=== PATIENT | female | born 1970 | race African-American/Black ===

== ENCOUNTER 2019-10-11 04:58 | Inpatient (IN) ==
[2019-10-11] MEDS ORDERED: ALUM/MAG/SIMETH/LIDO VISC 1:1 30 ML BOTTLE PO ONE (05:23)
[2019-10-11 05:30] LABS: Basophils % 0.3 % (0.0-0.8); Eosinophils # 0.1 10*3/uL (0.0-0.87); Eosinophils % 1.8 % (0.00-10.9); Hematocrit 36.1 VOL% (35.7-47.0); Immature Granulocytes % 0.3 %; Immature Granulocytes Absolute 0.02 #; Lymphocytes # 1.5 10*3/uL (1.4-4.0); Lymphocytes % 23.5 % (21.3-54.2); Mean Corpuscular HGB Conc 33.2 GM/DL (32-36); Mean Corpuscular Volume 96.8 FL (87-102); Mean Platelet Volume 10.1 FL (9.6-12.0); Monocytes % 4.4 % (1.7-12.7); Neutrophils % 69.7 % (38.7-73.9); Platelet Count 209 T/CUMM (130-400); Red Blood Count 3.73 MC/CUMM (3.8-5.5); Red Cell Distribution Width 13.2 % (9.3-17.3); White Blood Count 6.2 T/CUMM (4-12)
[2019-10-11 05:48] LABS: INR 0.9
[2019-10-11 05:54] LABS: Albumin 3.8 G/DL (3.4-5.0); Bilirubin,Total 0.9 MG/DL (0.2-1.0); Calcium 9.2 MG/DL (8.5-10.1); Osmolality,Calculated 272.7 MOS/KG (273-304)
[2019-10-11] MEDS ORDERED: ONDANSETRON 4 MG/2 ML VIAL ONE ×2 (06:21→13:18)
[2019-10-11] MEDS ORDERED: ONDANSETRON 4 MG/2 ML VIAL IV STA ×2 (06:24→13:00)
[2019-10-11 07:44] LABS: Apearance,Urine CLEAR (Clear); Bilirubin,Urine Negative (Negative); Blood, Urine Negative (Negative); Glucose,Urine (UA) Negative (Negative); Ketones,Urine Negative (Negative); Nitrite,Urine Negative (Negative); Protein,Urine Negative; RBC,Urine <1 /HPF (0-4); Squamous Epithelial Cell,Urine Occasional /HPF (0-10); Urine Color Yellow (Yellow); Urine Specific Gravity 1.004 (1.001-1.035); Urine Urobilinogen < 2.0 EU/DL (0.2-1.0)
[2019-10-11] MEDS ORDERED: HYDROmorphone 2 MG/1 ML VIAL IV STA (13:00)
[2019-10-11] MEDS ORDERED: HYDROmorphone 2 MG/1 ML VIAL ONE (13:18)
[2019-10-11] MEDS ORDERED: ACETAMINOPHEN 500 MG TABLET ONE (13:27)
[2019-10-11] MEDS ORDERED: ACETAMINOPHEN 325 MG TABLET PO PRN (16:02)
[2019-10-11] MEDS ORDERED: PROMETHAZINE 25 MG/1 ML VIAL IM PRN (16:02)
[2019-10-11] MEDS ORDERED: HYDROmorphone 2 MG/1 ML VIAL IV PRN (16:02)
[2019-10-11] MEDS ORDERED: ONDANSETRON 4 MG/2 ML VIAL IV PRN (16:02)
[2019-10-11] MEDS: LACTATED RINGERS 1,000 ML IV SCH (16:13)
[2019-10-11] MEDS: PIPERACILLIN/TAZOBACTAM 3,375 MG in SODIUM CHLORIDE 0.9% 100 ML IV SCH ×2 (17:43→23:19)
[2019-10-11] MEDS: PANTOPRAZOLE 40 MG VIAL IV SCH ×2 (17:43→20:29)
[2019-10-12] MEDS: LACTATED RINGERS 1,000 ML IV SCH ×2 (00:13→08:57)
[2019-10-12 07:17] LABS: Basophils % 0.6 % (0.0-0.8); Eosinophils # 0.2 10*3/uL (0.0-0.87); Eosinophils % 6.7 % (0.00-10.9); Hematocrit 32.8 VOL% (35.7-47.0); Hemoglobin 10.6 GM/DL (12.0-16.0); Lymphocytes # 1.6 10*3/uL (1.4-4.0); Lymphocytes % 48.6 % (21.3-54.2); Mean Corpuscular HGB Conc 32.3 GM/DL (32-36); Mean Corpuscular Volume 97.9 FL (87-102); Mean Platelet Volume 10.6 FL (9.6-12.0); Monocytes % 5.2 % (1.7-12.7); Neutrophils % 38.9 % (38.7-73.9); Platelet Count 178 T/CUMM (130-400); Red Blood Count 3.35 MC/CUMM (3.8-5.5); Red Cell Distribution Width 13.5 % (9.3-17.3); White Blood Count 3.3 T/CUMM (4-12)
[2019-10-12 07:28] LABS: Calcium 8.1 MG/DL (8.5-10.1); Osmolality,Calculated 276.3 MOS/KG (273-304)
[2019-10-12 07:38] LABS: Hypochromasia 1+; Platelet Estimate Adequate
[2019-10-12] MEDS ORDERED: POTASSIUM CHLORIDE 20 MEQ TABLET PO PRN (08:07)
[2019-10-12] MEDS ORDERED: POTASSIUM CHLORIDE RIDER 10 MEQ in PREMIX 1 EACH IV PRN (08:07)
[2019-10-12] MEDS: ENOXAPARIN 40 MG/0.4 ML SYRINGE SUBCUT SCH (08:56)
[2019-10-12] MEDS: ENALAPRIL 10 MG TABLET PO SCH (10:53)
[2019-10-12] MEDS: hydroCHLOROthiazide 12.5 MG CAPSULE PO SCH (10:53)
[2019-10-12] MEDS: PANTOPRAZOLE 40 MG VIAL IV SCH ×2 (10:59→21:24)
[2019-10-12] MEDS: POTASSIUM CHLORIDE INJ 20 MEQ in LACTATED RINGERS 1,000 ML IV SCH ×2 (10:59→17:08)
[2019-10-12] MEDS: POTASSIUM CHLORIDE 20 MEQ/15 ML UDCUP PO SCH ×3 (10:59→21:24)
[2019-10-12] MEDS: PIPERACILLIN/TAZOBACTAM 3,375 MG in SODIUM CHLORIDE 0.9% 100 ML IV SCH ×3 (11:00→23:47)
[2019-10-13 06:41] LABS: Basophils % 0.6 % (0.0-0.8); Eosinophils # 0.2 10*3/uL (0.0-0.87); Hematocrit 31.8 VOL% (35.7-47.0); Hemoglobin 10.2 GM/DL (12.0-16.0); Lymphocytes # 1.6 10*3/uL (1.4-4.0); Lymphocytes % 48.9 % (21.3-54.2); Mean Corpuscular HGB Conc 32.1 GM/DL (32-36); Mean Corpuscular Volume 99.4 FL (87-102); Mean Platelet Volume 10.6 FL (9.6-12.0); Monocytes % 4.6 % (1.7-12.7); Neutrophils % 38.9 % (38.7-73.9); Platelet Count 182 T/CUMM (130-400); Red Cell Distribution Width 13.6 % (9.3-17.3); White Blood Count 3.3 T/CUMM (4-12)
[2019-10-13 06:58] LABS: Calcium 8.4 MG/DL (8.5-10.1); Osmolality,Calculated 276.3 MOS/KG (273-304)
[2019-10-13 07:04] LABS: Hypochromasia Slight; Microcytosis Slight
[2019-10-13 07:05] LABS: Platelet Estimate Adequate
[2019-10-13] MEDS ORDERED: LACTATED RINGERS 1,000 ML IV SCH (08:00)
[2019-10-13] MEDS ORDERED: LIDOCAINE 2% 5 ML VIAL ONE (09:00)
[2019-10-13] MEDS ORDERED: propofoL 200 MG/20 ML VIAL IV ONE (09:00)
[2019-10-13] MEDS: hydroCHLOROthiazide 12.5 MG CAPSULE PO SCH (09:59)
[2019-10-13] MEDS: PANTOPRAZOLE 40 MG TABLET PO SCH ×2 (09:59→15:31)
[2019-10-13] MEDS: PIPERACILLIN/TAZOBACTAM 3,375 MG in SODIUM CHLORIDE 0.9% 100 ML IV SCH (09:59)
[2019-10-13] MEDS: POTASSIUM CHLORIDE 20 MEQ/15 ML UDCUP PO SCH ×3 (10:00→20:22)
[2019-10-13] MEDS: ENALAPRIL 10 MG TABLET PO SCH (10:00)
[2019-10-13] MEDS: POTASSIUM CHLORIDE INJ 20 MEQ in LACTATED RINGERS 1,000 ML IV SCH ×3 (15:30→23:28)
[2019-10-14] MEDS: PIPERACILLIN/TAZOBACTAM 3,375 MG in SODIUM CHLORIDE 0.9% 100 ML IV SCH ×3 (01:56→16:19)
[2019-10-14] MEDS: POTASSIUM CHLORIDE INJ 20 MEQ in LACTATED RINGERS 1,000 ML IV SCH ×2 (07:33→16:57)
[2019-10-14] MEDS: ENALAPRIL 10 MG TABLET PO SCH (09:15)
[2019-10-14] MEDS: hydroCHLOROthiazide 12.5 MG CAPSULE PO SCH (09:15)
[2019-10-14] MEDS: PANTOPRAZOLE 40 MG TABLET PO SCH ×2 (09:15→16:19)
[2019-10-14] MEDS ORDERED: traMADol 50 MG TABLET PO PRN (09:40)
[2019-10-14] MEDS: METOCLOPRAMIDE 10 MG/10 ML UDCUP PO SCH ×3 (11:04→22:00)
[2019-10-15] MEDS: PIPERACILLIN/TAZOBACTAM 3,375 MG in SODIUM CHLORIDE 0.9% 100 ML IV SCH ×2 (02:05→09:46)
[2019-10-15] MEDS: POTASSIUM CHLORIDE INJ 20 MEQ in LACTATED RINGERS 1,000 ML IV SCH ×3 (02:06→14:30)
[2019-10-15] MEDS ORDERED: INDOCYANINE GREEN 25 MG VIAL IV ONE (06:00)
[2019-10-15] MEDS ORDERED: LIDOCAINE 1%/EPI INJ 20 ML VIAL ONE (06:26)
[2019-10-15] MEDS ORDERED: TISSUE ADHESIVE 1 EACH APPLICATOR TOP ONE (06:27)
[2019-10-15] MEDS ORDERED: BUPIVACAINE MPF 0.25% 30 ML VIAL ONE (06:53)
[2019-10-15] MEDS ORDERED: LACTATED RINGERS 1,000 ML IV SCH (07:30)
[2019-10-15] MEDS: METOCLOPRAMIDE 10 MG/10 ML UDCUP PO SCH ×2 (07:30→15:00)
[2019-10-15] MEDS: PANTOPRAZOLE 40 MG TABLET PO SCH (07:30)
[2019-10-15] MEDS: ENOXAPARIN 40 MG/0.4 ML SYRINGE SUBCUT SCH (07:36)
[2019-10-15] MEDS ORDERED: SEVOFLURANE 1 UNIT/15 MINUTE INH ONE (08:25)
[2019-10-15] MEDS ORDERED: LIDOCAINE 2% 5 ML VIAL ONE (08:25)
[2019-10-15] MEDS ORDERED: propofoL 200 MG/20 ML VIAL IV ONE (08:25)
[2019-10-15] MEDS ORDERED: MIDAZOLAM 2 MG/2 ML VIAL ONE (08:26)
[2019-10-15] MEDS ORDERED: fentaNYL 100 MCG/2 ML VIAL ONE (08:26)
[2019-10-15] MEDS ORDERED: NEOSTIGMINE 10 MG/10 ML VIAL ONE (08:26)
[2019-10-15] MEDS ORDERED: GLYCOPYRROLATE 0.4 MG/2 ML VIAL ONE (08:26)
[2019-10-15] MEDS ORDERED: ROCURONIUM 100 MG/10 ML VIAL IV ONE (08:26)
[2019-10-15] MEDS ORDERED: DEXAMETHASONE 4 MG/1 ML VIAL ONE (08:26)
[2019-10-15] MEDS ORDERED: ONDANSETRON 4 MG/2 ML VIAL ONE (08:26)
[2019-10-15] MEDS: HYDROmorphone 2 MG/1 ML VIAL IV PRN ×2 (08:40→08:45)
[2019-10-15] MEDS ORDERED: ONDANSETRON 4 MG/2 ML VIAL IV PRN (08:41)
[2019-10-15] MEDS: ENALAPRIL 10 MG TABLET PO SCH (14:59)
[2019-10-15] MEDS: hydroCHLOROthiazide 12.5 MG CAPSULE PO SCH (14:59)
[2019-10-15 16:10] VITALS: BP 125/82
== END 2019-10-15 16:05 | disposition home or self-care (01) | DRG 418 ==
LOC: N.ED 04:58 → N.EDINP 13:34 → N.3E 15:50
PROVIDERS: ADMIT Surgery; ATTEND Surgery
PROC: LAPCHOL (2019-10-15 07:21)